=== PATIENT | female | born 1985 | race Two or more races ===

== ENCOUNTER 2025-04-26 14:50 | Outpatient (RCR) | payer MEDICAID, SELFPAY ==
--- NOTE | 2025-04-26 15:14 | PTNOTE_ITS ---
PT OP Initial Eval Patient Information Outpatient Physical Therapy Treatment Date: 04/26/25 Visit Reasons: Right sciatica side Medical Diagnosis: M54.41 Treatment Dx #1: LBP with radiculopathy Start of Care: 04/26/25 Date of Onset: 6 months ago Smoking Status Smoking Status: Never smoker Initial Assessment Subjective: Pt of 39 yr old italian speaking female who reports LBP that radiates into the R LE. She works in the [employer] and bends to lift which causes pain. Increased pain with prolonged sitting >15 mins. PMH: hypothyroidism, high cholesterol Imaging: MRI minimal right posterolateral disc bulging at L4-5. Pt goal: to get rid of the pain Objective: Trunk ArOM: ? B SB 50% of normal with pain ? Extension: 20% with pain around L4-5, L5-S1 ? Flexion: 10 from floor with LBP ? B rotation: 60% with pain ? TTP: moderate paraspinals L4-S1 R side ? Neuro: R SLR: positive Assessment: Pt presents with trunk flexion sensitivity and overlying myofascial pain ? and TTP around L5-S1 consistent with ? lower lumbar disc bulge(s) with radiculopathy. Pt requires skilled therapy in order to decrease ? pain and improve sitting/standing tolerance and has fair rehab potential. Eval ?followed by [facility]P printout. Short Term and Senior Care Goals 1. Ind with HEP ? 2. Improved sitting/standing tolerance to 30 minutes with <=4/10 LBP ? 3. Decreased lower paraspinal TTP from mod to min 4. Improved HH chore tolerance to at least 30 minutes with <=3/10 LBP and no ?increase in LE ssx ? Treatment Plan 1. Manual therapy ? 2. Therex ? 3. Modalities as indicated, moist heat, ice, estim, mechanical traction Frequency and Duration: 1-2x a week for 12 visits. We will need provider's signature to continue past the 6 requested on the referral. Certification Dates: 04/26/25 to 07/26/25 Procedure Charges OP PT Eval Mod Complex 30 minutes: Yes
== END 2025-05-03 23:59 | disposition home or self-care (01) ==
LOC: CPTX 14:50
PROVIDERS: PCP Physician Assistant; Referring Provider Physician Assistant; Visit Provider Physician Assistant
DX: M54.16 Radiculopathy, lumbar region (principal); M54.41 Lumbago with sciatica, right side
CPT/HCPCS: 97162